=== PATIENT | female | born 1960 | race Caucasian/White ===

== ENCOUNTER 2018-08-10 07:23 | Day surgery (SDC) | payer BC ==
[~2018-08-10 07:23] MED LIST: PROPOFOL 200 MG INJ
[2018-08-10] MEDS ORDERED: PROPOFOL 60 ML (09:45)
[2018-08-10] MEDS ORDERED: LIDOCAINE 100 MG SYRINGE (09:45)
== END 2018-08-10 13:33 | disposition home or self-care (01) ==
LOC: GIL 07:23
DX: K31.89 Other diseases of stomach and duodenum (principal)
CPT/HCPCS: 43239; 88305; 88312